=== PATIENT | male | born 1930 | race Caucasian/White ===

== ENCOUNTER 2018-01-17 02:19 | Inpatient (IN) | payer OTHER ==
[2018-01-17] MEDS ORDERED: Ketorolac 30 MG/ML SDV IM ONE (04:09)
[2018-01-17] MEDS ORDERED: Ketorolac 30 MG/ML SDV ONE (04:12)
[2018-01-17] MEDS ORDERED: Ketorolac 10 MG Tab PO SCH (05:15)
[2018-01-17] MEDS: traMADol 50 MG Tab PO PRN ×2 (05:30→13:56)
[2018-01-17] MEDS: Aspirin 81 MG Tab.EC PO SCH (08:00)
[2018-01-17] MEDS: Isosorbide Mononitrate 30 MG Tab.ER PO SCH (08:00)
[2018-01-17] MEDS: Omeprazole 40 MG Cap.CR PO SCH (08:00)
[2018-01-17] MEDS: Ketorolac 10 MG Tab PO SCH ×2 (08:05→16:19)
[2018-01-17] MEDS: hydrALAZINE 25 MG Tab PO SCH ×2 (08:06→22:00)
--- NOTE | 2018-01-17 08:08 | CR ---
DATE OF SERVICE: 01/17/18 CLINICAL DATA: fall LEFT SHOULDER: A single view was performed. I do not see evidence of fracture or dislocation, however a single view is inadequate to exclude either. Repeat complete exam is recommended. [id number] [facility]
--- NOTE | 2018-01-17 08:12 | CR ---
DATE OF SERVICE: 01/17/18 CLINICAL DATA: fall PELVIS AND RIGHT HIP: No acute fracture or dislocation. There are multiple metallic implants located in the region of the prostate. [id number] [facility]
--- NOTE | 2018-01-17 08:15 | CT ---
DATE OF SERVICE: 01/17/18 CLINICAL DATA: fall PELVIC CT: Multislice acquisition through the pelvis without IV or oral contrast was performed. No priors. There is significant motion artifact degrading image quality. I do not see any fractures, however, a repeat exam is recommended. No lytic or blastic bone lesions. [id number] [facility]
--- NOTE | 2018-01-17 08:19 | CT ---
DATE OF SERVICE: 01/17/18 CLINICAL DATA: fall LUMBAR SPINE CT: Multislice axial acquisition was performed. Motion artifact degrades image quality. No priors. I do not see an acute fracture, however, a subtle fracture cannot be excluded and a repeat exam is recommended. There is degenerative disc disease at multiple levels. No other significant findings. [id number] [facility]
--- NOTE | 2018-01-17 08:24 | CT ---
DATE OF SERVICE: 01/17/18 CLINICAL DATA: Fall CERVICAL SPINE CT: Multislice axial acquisition was performed. Axial images and sagittal and coronal reformations are reviewed. Motion artifact degrades image quality. No acute fracture or dislocation identified. Subtle fractures cannot be excluded due to motion. There is degenerative disc disease at multiple levels. There is now anterolisthesis of C3 on C4 and of C4 on C5. There is facet joint hypertrophy throughout the cervical spine. The soft tissues are unremarkable. Visualized lung apices are clear. IMPRESSION: Suboptimal exam. No fracture. [id number] [facility]
[2018-01-17] MEDS ORDERED: Valsartan 40 MG Tab ONE (10:21)
[2018-01-17] MEDS: Valsartan 160 MG Tab PO SCH (10:29)
[2018-01-17] MEDS: Memantine 10 MG Tab PO SCH (10:30)
--- NOTE | 2018-01-17 12:15 | CT ---
DATE OF SERVICE: 01/17/18 CLINICAL DATA: fall UNENHANCED BRAIN CT: Multislice axial acquisition was performed. No priors. Motion artifact significantly degrades image quality. There is diffuse cerebral atrophy. No acute abnormalities are identified, however, acute infarcts or small areas of parenchymal hemorrhage cannot be excluded. Repeat exam is recommended. [id number] [facility]
--- NOTE | 2018-01-17 14:04 | EDM.PDOC ---
ED HPI GENERAL MEDICAL PROBLEM - General Chief Complaint: General Stated Complaint: FALL, NECK PAIN Time Seen by Provider: 01/17/18 02:20 Source of Information: Reports: Other (friend) History Limitations: Reports: Other (dementia) - History of Present Illness INITIAL COMMENTS - FREE TEXT/NARRATIVE: Pt is from [place] here on fishing trip with his friends. Pt has dementia and has difficulty with comprehending. C/o pain but cannot point and show where. According to patient's friend. Patient woke up in the dark to use the restroom, and did not turn on the light and tripped and fell backward and landed on his back. Has been c/o neck pain. Ambulance was called. Pt was placed on hard board and C-collar and brought into the emergency room. Pt is awake and alert, not oriented to place, time or person. Appears confused. C-Collar in place. Onset: Today Onset Date: 01/17/18 Onset Time: 01:00 Duration: Constant Location: Reports: Neck Improves with: Reports: None Worsens with: Reports: None Associated Symptoms: Denies: Confusion, Chest Pain, Cough, Diaphoresis, Fever/ Chills, Headaches, Nausea/Vomiting, Rash, Seizure, Shortness of Breath, Syncope , Weakness Treatments WAXER OPERATOR: Reports: Spinal Immobilization, Other (see below) Other Treatments WAXER OPERATOR: backboard - Related Data Allergies Allergy/AdvReac Type Severity Reaction Status Date / Time Sulfa (Sulfonamide Allergy Hives Verified 01/17/18 04:31 Antibiotics) Home Meds: Home Meds Aspirin [Halfprin] 81 mg PO DAILY 01/17/18 [History] Isosorbide Mononitrate [Imdur] 30 mg PO DAILY 01/17/18 [History] Memantine [Namenda] 10 mg PO DAILY 01/17/18 [History] Omeprazole 40 mg PO ACBREAKFAST 01/17/18 [History] Pravastatin Sodium [Pravastatin (Pravachol)] 40 mg PO QPM 01/17/18 [History] Valsartan 320 mg PO DAILY 01/17/18 [History] hydrALAZINE [Apresoline] 25 mg PO Q12HR 01/17/18 [History] Past Medical History Cardiovascular History: Reports: High Cholesterol, Hypertension Psychiatric History: Reports: Dementia - Past Surgical History Other HEENT Surgeries/Procedures: unknown Other Respiratory Surgeries/Procedures: unknown Other GI Surgeries/Procedures: unknown Other Male Surgeries/Procedures: possible Prostate CA Other Endocrine Surgeries/Procedures: unknown Other Neurological Surgeries/Procedures: unknown Other Musculoskeletal Surgeries/Procedures:: unknown ED ROS GENERAL - Review of Systems Review Of Systems: Unable To Obtain (due to dementia) ED EXAM, GENERAL - Physical Exam Exam: See Below Exam Limited By: Other (Severe Dementia) General Appearance: Alert, WD/WN, Mild Distress, Other (Pt is in hard C-collar on hard board.pt moans and says he hurts, when asked where says neck and heel) Eye Exam: Bilateral Eye: EOMI, PERRL Ears: Normal External Exam, Normal Canal, Hearing Grossly Normal, Normal TMs Ear Exam: Bilateral Ear: Auricle Normal, Canal Normal, TM normal Nose: Normal Inspection, Normal Mucosa, No Blood Throat/Mouth: Normal Inspection, Normal Lips, Normal Teeth, Normal Gums, Normal Oropharynx, Normal Voice, No Airway Compromise Head: Atraumatic, Normocephalic Neck: Normal Inspection, Supple, Non-Tender, Full Range of Motion, Tender Midline (over C4 spine) Respiratory/Chest: No Respiratory Distress, Lungs Clear, Normal Breath Sounds, No Accessory Muscle Use, Chest Non-Tender Cardiovascular: Normal Peripheral Pulses, Regular Rate, Rhythm, No Edema, No Gallop, No JVD, No Murmur, No Rub Peripheral Pulses: 2+: Carotid (L), Carotid (R), Radial (L), Radial (R) GI/Abdominal: Normal Bowel Sounds, Soft, Non-Tender, No Organomegaly, No Distention, No Abnormal Bruit, No Mass Back Exam: Normal Inspection, Full Range of Motion. No: CVA Tenderness (R), CVA Tenderness (L), Decreased Range of Motion, Muscle Spasm, Paraspinal Tenderness, Vertebral Tenderness Extremities: Normal Inspection, Normal Range of Motion, Non-Tender, Normal Capillary Refill, No Pedal Edema Neurological: Alert, CN II-XII Intact, Normal Reflexes, No Motor/Sensory Deficits. No: Oriented, Normal Cognition, Normal Gait Psychiatric: Normal Affect Skin Exam: Warm, Intact Course - Vital Signs Text/Narrative:: 88 year old elder male with sever dementia in unfamiliar location. Pt is very confused. He says " it hurt" but patient cannot localize pain. On clinical exam there is no skin bruising or abrasion anywhere over the body. He does have lateral rotation of the right lower extremity and pain over left shoulder. Hence initially Ct C-spine, Xray left shoulder and right hip with pelvis was done. The radiology reports was negative for fracture. On clinical exam I could not localize any area of tenderness other than C4 spine. Pt could not weight bear. Hence I did get CT LS spine and also Bony pelvis to rule out subtle fracture. CT reports were negative. Pt did receive toradol 15mg IM. Pt continued to be in pain, but did not appear in distress, but hard for him to locate the pain. with his severe dementia, his neuro exam ( pupil was reactive and equal EOMI) was normal. Pt could not weight bear or stand on his feet. He would scream with pain. My assumption was he probably has trauma pain from the impact of fall. Hence after discussing with his son in [place], pt was admitted for pain control and OT and PT to be started in the morning. Last Recorded V/S: Last Vital Signs Temp 98.7 F 01/17/18 04:11 Pulse 94 01/17/18 05:20 Resp 18 01/17/18 05:20 BP 167/84 H 01/17/18 10:29 Pulse Ox 96 01/17/18 05:20 - Orders/Labs/Meds Orders: Medication Orders Aspirin (Halfprin) 81 mg PO DAILY [facility] Last Admin: 01/17/18 08:00 Dose: 81 mg Hydralazine HCl (Apresoline) 25 mg PO Q12HR [facility] Last Admin: 01/17/18 08:06 Dose: 25 mg Isosorbide Mononitrate (Imdur) 30 mg PO DAILY [facility] Last Admin: 01/17/18 08:00 Dose: 30 mg Ketorolac Tromethamine (Toradol) 5 mg PO Q8H ANA Stop: 01/22/18 08:01 Last Admin: 01/17/18 08:05 Dose: 5 mg Memantine (Namenda) 10 mg PO DAILY [facility] Last Admin: 01/17/18 10:30 Dose: 10 mg Omeprazole (Omeprazole) 40 mg PO ACBREAKFAST [facility] Last Admin: 01/17/18 08:00 Dose: 40 mg Pravastatin Sodium (Pravachol) 40 mg PO QPM [facility] Tramadol HCl (Ultram) 50 mg PO Q8H PRN PRN Reason: Pain Last Admin: 01/17/18 13:56 Dose: 50 mg Admin: 01/17/18 05:30 Dose: 50 mg Valsartan (Diovan) 160 mg PO DAILY [facility] Last Admin: 01/17/18 10:29 Dose: 160 mg Meds: Medications Generic Name Dose Route Start Last Admin Trade Name Yadi PRN Reason Stop Dose Admin Aspirin 81 mg 01/17/18 08:00 01/17/18 08:00 Halfprin PO 81 mg DAILY ANA Administration Hydralazine HCl 25 mg 01/17/18 08:00 01/17/18 08:06 Apresoline PO 25 mg Q12HR ANA Administration Isosorbide Mononitrate 30 mg 01/17/18 08:00 01/17/18 08:00 Imdur PO 30 mg DAILY ANA Administration Ketorolac Tromethamine 5 mg 01/17/18 08:00 01/17/18 08:05 Toradol PO 01/22/18 08:01 5 mg Q8H ANA Administration Memantine 10 mg 01/17/18 08:00 01/17/18 10:30 Namenda PO 10 mg DAILY ANA Administration Omeprazole 40 mg 01/17/18 07:00 01/17/18 08:00 Omeprazole PO 40 mg ACBREAKFAST ANA Administration Pravastatin Sodium 40 mg 01/17/18 20:00 Pravachol PO QPM ANA Tramadol HCl 50 mg 01/17/18 05:09 01/17/18 13:56 Ultram PO 50 mg Q8H PRN Administration Pain Valsartan 160 mg 01/17/18 08:00 01/17/18 10:29 Diovan PO 160 mg DAILY ANA Administration Discontinued Medications Generic Name Dose Route Start Last Admin Trade Name Yadi PRN Reason Stop Dose Admin Ketorolac Tromethamine 15 mg 01/17/18 04:09 01/17/18 04:10 Toradol IM 01/17/18 04:10 15 mg ONETIME ONE Administration Ketorolac Tromethamine Confirm 01/17/18 04:12 01/17/18 04:12 Toradol Administered 01/17/18 04:13 Not Given Dose 30 mg .ROUTE .STK-MED ONE Ketorolac Tromethamine 5 mg 01/17/18 05:15 01/17/18 10:39 Toradol PO 01/22/18 05:16 Not Given Q8H ANA Valsartan Confirm 01/17/18 10:21 01/17/18 10:38 Diovan Administered 01/17/18 10:22 Not Given Dose 160 mg .ROUTE .STK-MED ONE Departure - Departure Time of Disposition: 04:30 Disposition: Admitted As Inpatient 67 Condition: Fair Clinical Impression: Pain management - Discharge Information - Problem List & Annotations (1) Pain management SNOMED Code(s): 958478523 Code(s): R52 - PAIN, UNSPECIFIED Status: Acute Current Visit: Yes - Problem List Review Problem List Initiated/Reviewed/Updated: Yes - Assessment/Plan Assessment:: Fall with generalized pain Plan: 88 year old elder male with sever dementia in unfamiliar location. Pt is very confused. He says " it hurt" but patient cannot localize pain. On clinical exam there is no skin bruising or abrasion anywhere over the body. He does have lateral rotation of the right lower extremity and pain over left shoulder. Hence initially Ct C-spine, Xray left shoulder and right hip with pelvis was done. The radiology reports was negative for fracture. On clinical exam I could not localize any area of tenderness other than C4 spine. Pt could not weight bear. Hence I did get CT LS spine and also Bony pelvis to rule out subtle fracture. CT reports were negative. Pt did receive toradol 15mg IM. Pt continued to be in pain, but did not appear in distress, but hard for him to locate the pain. with his severe dementia, his neuro exam ( pupil was reactive and equal EOMI) was normal. Pt could not weight bear or stand on his feet. He would scream with pain. My assumption was he probably has trauma pain from the impact of fall. Hence after discussing with his son in [place], pt was admitted for pain control and OT and PT to be started in the morning.
[2018-01-17] MEDS ORDERED: traMADol 50 MG Tab PO ONE (18:07)
[2018-01-17] MEDS: Pravastatin 40 MG Tab PO SCH (22:04)
[2018-01-18] MEDS: Ketorolac 10 MG Tab PO SCH ×3 (00:02→16:55)
[2018-01-18] MEDS: traMADol 50 MG Tab PO PRN (04:32)
[2018-01-18] MEDS: Omeprazole 40 MG Cap.CR PO SCH (06:41)
[2018-01-18] MEDS ORDERED: LORazepam 2 MG/ML SDV IM ONE (09:07)
[2018-01-18] MEDS: hydrALAZINE 25 MG Tab PO SCH ×3 (10:24→19:57)
[2018-01-18] MEDS: Aspirin 81 MG Tab.EC PO SCH (10:25)
[2018-01-18] MEDS: Isosorbide Mononitrate 30 MG Tab.ER PO SCH (10:25)
[2018-01-18] MEDS: Memantine 10 MG Tab PO SCH (10:25)
--- NOTE | 2018-01-18 10:45 | PCM.PN ---
- General Info Date of Service: 01/18/18 Subjective Update: Pt did have a good day yesterday. He has been feeding with assistance. Physical therapy did evaluate patient yesterday and found that it was hard for patient to stand or ambulate even with support. CT head done yesterday is negative.Today patient has been twicting n the upper extremities and also he cannot weight bear. Nursing staff had to carry him to sit. Pt cannot answer questions appropriately. He keeps asking -why is he being shocked. Functional Status: Reports: Pain Controlled, Tolerating Diet, Urinating. Denies : Ambulating - Review of Systems General: Reports: Other (very hard to take any history from patient due to severe dementia.) - Patient Data Vitals - Most Recent: Last Vital Signs Temp 99.5 F 01/18/18 06:44 Pulse 91 01/18/18 00:04 Resp 15 01/18/18 00:04 BP 182/108 H 01/18/18 10:24 Pulse Ox 94 L 01/18/18 00:04 I&O - Last 24 Hours: Intake & Output 01/17/18 01/18/18 01/18/18 22:59 06:59 14:59 Intake Total 500 110 Output Total 280 Balance 500 -170 Med Orders - Current: Current Medications Aspirin (Halfprin) 81 mg PO DAILY [facility] Last Admin: 01/18/18 10:25 Dose: 81 mg Hydralazine HCl (Apresoline) 25 mg PO Q12HR [facility] Last Admin: 01/18/18 10:24 Dose: 25 mg Isosorbide Mononitrate (Imdur) 30 mg PO DAILY [facility] Last Admin: 01/18/18 10:25 Dose: 30 mg Ketorolac Tromethamine (Toradol) 5 mg PO Q8H [facility] Stop: 01/22/18 08:01 Last Admin: 01/18/18 10:25 Dose: 5 mg Memantine (Namenda) 10 mg PO DAILY [facility] Last Admin: 01/18/18 10:25 Dose: 10 mg Omeprazole (Omeprazole) 40 mg PO ACBREAKFAST [facility] Last Admin: 01/18/18 06:41 Dose: 40 mg Pravastatin Sodium (Pravachol) 40 mg PO QPM [facility] Last Admin: 01/17/18 22:04 Dose: 40 mg Tramadol HCl (Ultram) 50 mg PO Q8H PRN PRN Reason: Pain Last Admin: 01/18/18 04:32 Dose: 50 mg Valsartan (Diovan) 160 mg PO DAILY [facility] Last Admin: 01/17/18 10:29 Dose: 160 mg Discontinued Medications Ketorolac Tromethamine (Toradol) 15 mg IM ONETIME ONE Stop: 01/17/18 04:10 Last Admin: 01/17/18 04:10 Dose: 15 mg Ketorolac Tromethamine (Toradol) Confirm Administered Dose 30 mg .ROUTE .STK- MED ONE Stop: 01/17/18 04:13 Last Admin: 01/17/18 04:12 Dose: Not Given Ketorolac Tromethamine (Toradol) 5 mg PO Q8H [facility] Stop: 01/22/18 05:16 Last Admin: 01/17/18 10:39 Dose: Not Given Lorazepam (Ativan) 1 mg IM ONETIME ONE Stop: 01/18/18 09:08 Last Admin: 01/18/18 10:25 Dose: 1 mg Tramadol HCl (Ultram) 50 mg PO ONETIME ONE Stop: 01/17/18 18:08 Last Admin: 01/17/18 18:09 Dose: 50 mg Valsartan (Diovan) Confirm Administered Dose 160 mg .ROUTE .STK-MED ONE Stop: 01/17/18 10:22 Last Admin: 01/17/18 10:38 Dose: Not Given - Exam General: Alert, Cooperative, No Acute Distress. No: Oriented HEENT: Pupils Equal, EOMI, Mucous Membr. Moist/[place] Neck: Supple, Trachea Midline, Other (tender over the lowe Cspine to percussion) Lungs: Clear to Auscultation, Normal Respiratory Effort Cardiovascular: Regular Rate, Regular Rhythm GI/Abdominal Exam: Normal Bowel Sounds, Soft, Non-Tender, No Organomegaly, No Distention, No Abnormal Bruit, No Mass, Pelvis Stable Back Exam: Normal Inspection, Full Range of Motion Extremities: Normal Inspection, Normal Range of Motion, Non-Tender, No Pedal Edema, Normal Capillary Refill, Other (Cannot bear weight, almost hangs on to the staff to support him.) Peripheral Pulses: 2+: Carotid (L), Carotid (R), Radial (L), Radial (R), Dorsalis Pedis (L), Dorsalis Pedis (R) Skin: Warm, Intact Neurological: Normal Speech, Normal Tone, Other (Pt has been having both upper and lower extremity jerky involuntary movements). No: Normal Gait Psy/Mental Status: Alert. No: Agitated - Problem List & Annotations (1) Pain management SNOMED Code(s): 309881734 Code(s): R52 - PAIN, UNSPECIFIED Status: Acute Current Visit: Yes - Problem List Review Problem List Initiated/Reviewed/Updated: Yes - My Orders Last 24 Hours: My Active Orders 01/17/18 20:00 Pravastatin [Pravachol] 40 mg PO QPM 01/18/18 08:54 Chest wo Cont [CT] Routine Thoracic Spine wo Cont [CT] Routine - Plan Plan:: Pt did have a good day yesterday. He has been feeding with assistance. Physical therapy did evaluate patient yesterday and found that it was hard for patient to stand or ambulate even with support. He did have involuntary twitching of the legs.All his radiology work up is negative for acute fracture or injury. His pupils ere reactive, no external signs of head injury, we did get Ct head done yesterday to rule out internal head injury, which has been negative. Today patient has been having both lower and upper extremity twitching. Pt cannot answer question or localize to pain. Once in a while he asks why he has been getting shocked. Not sure What he means.But does appear like the twitching of the both lower and upper extremity since he fell is my understanding. There might be some irritation to the nerve of spinal cord at the cervical and upper thoracic level to cause this symptoms and difficulty with weight bearing( this is my guess) as I have not been able to find any traumatic cause for him not to weight bear. I did get CT Thoracic spine and chest CT done today. to make sure I am not missing anything .Clinical exam on this patient is very hard, due to his dementia. Pt cannot comprehend or answer questions appropriately, I have been guessing his symptoms from his behaviour. I have a feeling that his dementia has got worse, now that he is in unfamiliar place with unfamiliar personal around him.Will repeat CT head due to change in his motor function( twitching in the extremities).
[2018-01-18] MEDS: Valsartan 160 MG Tab PO SCH (13:05)
--- NOTE | 2018-01-18 17:06 | CT ---
DATE OF SERVICE: 01/18/18 CLINICAL DATA: fall with altered sensorium UNENHANCED BRAIN CT: Multislice axial acquisition was performed. Comparison is made to a prior exam dated 01/17/18. There is diffuse cerebral atrophy. There are periventricular lucencies bilaterally consistent with small vessel ischemic change. No masses or mass effect. No intracranial hemorrhage. No evidence of acute or subacute infarct. No osseous abnormalities. IMPRESSION: No acute intracranial abnormalities. [id number] [facility]
--- NOTE | 2018-01-18 17:13 | CT ---
DATE OF SERVICE: 01/18/18 CLINICAL DATA: fall with upper back pain THORACIC SPINE CT: Multislice axial acquisition was performed. Axial images and sagittal and coronal reformations are reviewed. No acute fracture or dislocation. No focal lytic or blastic bone lesions. There is degenerative disc disease throughout the thoracic spine. No significant central or foraminal stenosis. There is a cortical stepoff noted within the sternum consistent with a fracture. There is a small right pleural effusion. There are atelectatic changes in the dependent portion of both lungs with an area of consolidation in the right lung base posteriorly. Pneumonia cannot be excluded. No pneumothorax. The heart size is normal. There are coronary artery calcifications. There is a small pericardial effusion. There are atherosclerotic changes of the thoracic aorta. The ascending aorta is mildly prominent measuring 3.9 cm in diameter. There are calcified lymph nodes in the AP window region consistent with prior granulomatous disease. There is a low density lesion in the liver most likely representing a cyst. There is a 4.6 cm rounded low density lesion in the upper pole of the right kidney consistent with a cyst. There are smaller low density lesions within the right kidney most likely representing cysts. There is higher attenuation material within the dependent gallbladder consistent with gallstones or sludge. Possibly milk of calcium bile. Gallbladder ultrasound is recommended. No other significant findings. IMPRESSION: Multiple findings as discussed above. [id number] [facility]
--- NOTE | 2018-01-18 17:19 | CT ---
DATE OF SERVICE: 01/18/18 CLINICAL DATA: fall with extremity twitching UNENHANCED CHEST CT: Multislice acquisition through the chest without IV contrast was performed. No priors. There is a small right pleural effusion. No pneumothorax. There are atelectatic changes in the dependent portion of both lungs with areas of consolidation in both lung bases posteriorly, right greater than left. Pneumonia should be considered. The lungs are otherwise clear. The heart size is normal. There is a small pericardial effusion. There are coronary artery calcifications. There is prominence of the ascending aorta. It measures 3.9 cm in diameter. No evidence of mediastinal hematoma. There is a subcentimeter low density lesion within the liver most likely representing a cyst. There are multiple cysts in the right kidney. There is higher attenuation material noted in the dependent gallbladder. Gallbladder ultrasound is recommended. There is a lucency through the sternum suspicious for a fracture. No other significant findings. [id number] [facility]
[2018-01-18] MEDS: Pravastatin 40 MG Tab PO SCH ×2 (17:39→19:57)
[2018-01-19] MEDS: Ketorolac 10 MG Tab PO SCH (06:06)
--- NOTE | 2018-01-19 08:41 | PCM.DCSUM1 ---
Discharge Summary - Hospital Course Free Text/Narrative:: Pt was admitted on 01/17/18 to [facility] for pain control and to monitor patient as he could not weight bear. . Pt's initial work up for trauma was negative. CT C-spine, CT LS spine, CT pelvis were negative. Xray left hip and right shoulder were negative. There were no skin abrasion or bruising seen anywhere over the body, but patient was complaining of pain.Also he could not weight bear at all. Pt was placed on tramadol 50mg TID and toradol 15mg TID for pain control. Pt's Son lives in [facility] , who was notified of patient's condition. Also son was notified that patient could not be transported back home by the BUS he had come on until his gait is stable.OT and Pt orders were placed to evaluate patient.Pt did have some twitching activity of lower extremity.Pt condition remain status quo. He was feeding well. Vitals stable. After OT and PT evaluation was done. I did get CT head done which was negative. Pt has severe dementia and he could not answer any questions. Could not even localize pain. Now that he is in unfamiliar surroundings and people his confusion had worsened. his vital were stable. On 01/18/18 on morning round. Pt was sitting on the chair by bedside and having his breakfast, with nurse feeding him. I did noticed that he had gross involuntary movements of the upper extremity. He was able to raise his arms to the level of shoulder, with strength on 4/5. He did ask why he was being shocked. That really concerned me.Also he was more confused with place and person, which could still be his dementia. I did repeat CT head and also got CT of thoracic spine and also CT chest. 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 His CBC and CMP were stable. Considering his involuntary movement of the extremities, I did contact Eduardo Rodriguez around 12 noon once all the reports were back and negative. [facility] does not have inpatient neurology. Hence I did call Poncho Arvizu ND and discuss patient condition with Dr. Ulloa the neurologist steam distribution supervisor, His recommendation was to transfer to [facility] for further workup. Around 12:50 noon I did call Mr. Aaron Sultana, patient's son and discuss in detail about patient's medical condition. Son's preference was to have patient transferred to [facility], [facility], so that he can be close to family. I did contact Dr. Toledo( steam distribution supervisor neurologist), he did agree with transfer. Following which I did discuss patient with Dr. Verde, the hospitalist steam distribution supervisor. He did agree to accept patient. Air transfer was discussed, as there was going to be some out of pocket payment for the transfer, several air ambulance were contacted for pricing. [facility] was charging US$74,000 for transfer and [facility] was charging 15,000, but [facility] could only transfer patient tomorrow 01/19/18 around 10 Am. Mr. Aaron Sultana preferred patient transferred by [facility] on 01/19/18. [facility] was notified of the change by me, and the bed was held open for patient arrival on 01/19/18. On 01/19/18, I did get nurse call around 7:50 am as patient was not breathing or had no palpable pulse. I did reach the hospital around 8:00 am. Pt was in bed, no breathing or movement of chest noted, Pt was warm and his temp was 98.6F. Pupils were dilated and fixed. On auscultation there were no audible breath sounds or heart rate, and pupils were dilated with absent corneal reflex.There was no reason for CPR at this point. Pt was declared at 7:50 Am on 01/19. Pt was last evaluated at 6:45 am and he was sleeping. The night nurse had talked to patient around 5:[address] Gillespie catheter for air transfer, and Gillespie was placed. Mr. Aaron Sultana was called and notified of the by me around 8:00 Am. Mr.Abe Sultana wanted to know what was the cause of . Apparently all the workup done here was negative. I really cannot explain the cause of , other than natural at this point, but there was trauma involved, and only way to get an answer is by getting an autopsy. Patient's son does prefer autopsy. Respecting his request. [facility], Mr.Kraig Fisher was notified and he has visited patient. Also James's home was notified. Brief History: Pt presented to emergency room on 01/17/18 s/p fall by [facility]. On inital workup in the emergency room all the radiological workup was negative. Pt could not weight bear on his legs. Pt was admitted for close monitring and pain control. kindly see Detailed H&P on admission Diagnosis: Stroke: No Modified Campbell Scale: Modified Maryanne Scale Score: 6 - Discharge Data Discharge Date: 01/19/18 Discharge Disposition: 20 Condition: Good - Discharge Diagnosis/Problem(s) (1) Pain management SNOMED Code(s): 205392827 ICD Code: R52 - PAIN, UNSPECIFIED Status: Acute Current Visit: Yes - Patient Summary/Data Consults: Consultations 01/17/18 05:09 OT Evaluation and Treatment [CONS] Routine Please Evaluate and Treat. OT Reason for Consult: ADL's This query below is only for informational purposes and is not editable. PT Evaluation and Treatment [CONS] Routine Please Evaluate and Treat. PT Reason for Consult: Ambulation This query below is only for informational purposes and is not editable. - Discharge Plan Home Medications: Home Meds Aspirin [Halfprin] 81 mg PO DAILY 01/17/18 [History] Isosorbide Mononitrate [Imdur] 30 mg PO DAILY 01/17/18 [History] Memantine [Namenda] 10 mg PO DAILY 01/17/18 [History] Omeprazole 40 mg PO ACBREAKFAST 01/17/18 [History] Pravastatin Sodium [Pravastatin (Pravachol)] 40 mg PO QPM 01/17/18 [History] Valsartan 320 mg PO DAILY 01/17/18 [History] hydrALAZINE [Apresoline] 25 mg PO Q12HR 01/17/18 [History] Forms: ED Department Discharge Referrals: PCP,None [Primary Care Provider] - - Discharge Summary/Plan Comment DC Time >30 min.: No (Pt ) Discharge Summary/Plan Comment: Pt at 7:50 Am on 01/19/18 - General Info Date of Service: 01/19/18 Subjective Update: Pt found unresponsive, not breathing, with no palpable pulse. - Patient Data Vitals - Most Recent: Last Vital Signs Temp 98.6 F 01/18/18 08:00 Pulse 64 01/18/18 14:26 Resp 14 01/18/18 14:26 BP 169/109 H 01/18/18 17:39 Pulse Ox 93 L 01/18/18 14:26 I&O - Last 24 hours: Intake & Output 01/18/18 01/19/18 01/19/18 22:59 06:59 14:59 Intake Total 240 Output Total 750 Balance 240 -750 Lab Results - Last 24 hrs: Laboratory Results - last 24 hr 01/18/18 01/18/18 Range/Units 11:35 11:35 WBC 11.6 H (4.0-11.0) K/uL RBC 4.07 L (4.50-6.50) M/uL Hgb 13.2 (13.0-18.0) g/dL Hct 39.1 L (40.0-54.0) % MCV 96 (76-96) fL MCH 32.4 H (27.0-32.0) pg MCHC 33.8 (31.0-35.0) g/dL RDW 13.2 (11.0-16.0) % Plt Count 197 (150-400) K/uL MPV 10.2 H (6.0-10.0) fL Neut % (Auto) 88.6 H (45.0-70.0) % Lymph % (Auto) 5.3 L (20.0-40.0) % Harney % (Auto) 5.7 (3.0-10.0) % Eos % (Auto) 0.1 L (1.0-5.0) % Baso % (Auto) 0.3 (0.0-0.5) % Neut # (Auto) 10.30 H (2.00-7.50) K/uL Lymph # (Auto) 0.61 L (1.50-4.00) K/uL Harney # (Auto) 0.66 (0.20-0.80) K/uL Eos # (Auto) 0.01 L (0.04-0.40) K/uL Baso # (Auto) 0.03 (0.02-0.10) K/uL Sodium 142 (136-145) mmol/L Potassium 4.2 (3.5-5.1) mmol/L Chloride 110 H (98-107) mmol/L Carbon Dioxide 28.8 (21.0-32.0) mmol/L Anion Gap 7.4 (5.0-15.0) mmol/L BUN 25 (8-26) mg/dL Creatinine 1.21 (0.70-1.30) mg/dL Est Cr Clr Drug Dosing TNP Estimated GFR (MDRD) 57 L (>60) MLS/MIN BUN/Creatinine Ratio 20.7 (6-25) Glucose 134 H (74-100) mg/dL Calcium 8.3 L (8.5-10.1) mg/dL Total Bilirubin 1.1 H (0.0-1.0) mg/dL AST 35 (15-37) U/L ALT 35 (12-78) U/L Alkaline Phosphatase 60 (46-116) U/L Total Protein 5.9 L (6.4-8.2) g/dL Albumin 3.2 L (3.4-5.0) g/dL Globulin 2.7 (2.2-4.2) g/dL Albumin/Globulin Ratio 1.2 (0.8-2.0) Med Orders - Current: Current Medications Aspirin (Halfprin) 81 mg PO DAILY [facility] Last Admin: 01/18/18 10:25 Dose: 81 mg Hydralazine HCl (Apresoline) 25 mg PO Q12HR [facility] Last Admin: 01/18/18 19:57 Dose: Not Given Isosorbide Mononitrate (Imdur) 30 mg PO DAILY [facility] Last Admin: 01/18/18 10:25 Dose: 30 mg Ketorolac Tromethamine (Toradol) 5 mg PO Q8H [facility] Stop: 01/22/18 08:01 Last Admin: 01/19/18 06:06 Dose: Not Given Memantine (Namenda) 10 mg PO DAILY [facility] Last Admin: 01/18/18 10:25 Dose: 10 mg Omeprazole (Omeprazole) 40 mg PO ACBREAKFAST [facility] Last Admin: 01/18/18 06:41 Dose: 40 mg Pravastatin Sodium (Pravachol) 40 mg PO QPM [facility] Last Admin: 01/18/18 19:57 Dose: Not Given Tramadol HCl (Ultram) 50 mg PO Q8H PRN PRN Reason: Pain Last Admin: 01/18/18 04:32 Dose: 50 mg Valsartan (Diovan) 160 mg PO DAILY [facility] Last Admin: 01/18/18 13:05 Dose: Not Given Discontinued Medications Ketorolac Tromethamine (Toradol) 15 mg IM ONETIME ONE Stop: 01/17/18 04:10 Last Admin: 01/17/18 04:10 Dose: 15 mg Ketorolac Tromethamine (Toradol) Confirm Administered Dose 30 mg .ROUTE .STK- MED ONE Stop: 01/17/18 04:13 Last Admin: 01/17/18 04:12 Dose: Not Given Ketorolac Tromethamine (Toradol) 5 mg PO Q8H [facility] Stop: 01/22/18 05:16 Last Admin: 01/17/18 10:39 Dose: Not Given Lorazepam (Ativan) 1 mg IM ONETIME ONE Stop: 01/18/18 09:08 Last Admin: 01/18/18 10:25 Dose: 1 mg Tramadol HCl (Ultram) 50 mg PO ONETIME ONE Stop: 01/17/18 18:08 Last Admin: 01/17/18 18:09 Dose: 50 mg Valsartan (Diovan) Confirm Administered Dose 160 mg .ROUTE .STK-MED ONE Stop: 01/17/18 10:22 Last Admin: 01/17/18 10:38 Dose: Not Given - Exam General: Reports: Other (unresponsive) HEENT: Reports: Other (pupils dilated and fixed, absent corneal reflex) Lungs: Reports: Other (absent breath sounds) Cardiovascular: Reports: Other (absent audible heart rate)
== END 2018-01-19 07:50 | disposition expired | DRG 948 ==
LOC: LB.ED 02:19 → LB.MS 05:09 → UNDOADMIN 05:15 → LB.MS 05:15
PROVIDERS: ADMIT Family Medicine; ATTEND Family Medicine
DX: G89.11 Acute pain due to trauma (principal); F03.90 Unspecified dementia, unspecified severity, without behavioral disturbance, psychotic disturbance, mood disturbance, and anxiety; W01.0XXA Fall on same level from slipping, tripping and stumbling without subsequent striking against object, initial encounter; I10 Essential (primary) hypertension; E78.00 Pure hypercholesterolemia, unspecified; M25.512 Pain in left shoulder; R25.3 Fasciculation; I71.2 Thoracic aortic aneurysm, without rupture; Z79.82 Long term (current) use of aspirin; Z79.899 Other long term (current) drug therapy; Z88.2 Allergy status to sulfonamides; Z85.46 Personal history of malignant neoplasm of prostate
CPT/HCPCS: 36415; 51701; 51702; 70450; 71250; 72125; 72128; 72131; 72192; 73020-LT; 73501-RT; 80053; 85025; 97161-GP; 99285-25; A0425; A0429; A9270-GY; J1885; J2060